=== PATIENT | female | born 1985 | race Two or more races ===

== ENCOUNTER 2024-07-04 15:56 | Emergency (ER) | payer OTHER ==
[~2024-07-04] VITALS: Ht 149.9 cm; Wt 124.7 kg
[2024-07-04] MEDS ORDERED: LEVOTHYROXINE25 MCG PO (18:05)
[2024-07-04] MEDS ORDERED: SYNTHROID200 MCG PO (18:05)
[2024-07-04] MEDS ORDERED: 0.9 % SODIUM CHLORIDE 500 ML IV ONE (18:45)
[2024-07-04] MEDS ORDERED: ACETAMINOPHEN 500 MG GEL..CAP PO ONE ×2 (19:00→19:10)
[2024-07-04] MEDS ORDERED: FAMOTIDINE/PF 20 MG/2 ML VIAL IV ONE (19:00)
[2024-07-04] MEDS ORDERED: FAMOTIDINE/PF 20 MG/2 ML VIAL ONE (19:10)
[2024-07-04 19:22] LABS: HEMATOCRIT 42.4 % (36.0-45.00); HEMOGLOBIN 13.9 g/dL (12.0-15.00); MEAN CELL VOLUME 87.2 fL (80.00-100.00); MEAN CORPUSCULAR HEMOGLOBIN 28.6 pg (27.00-32.0); MEAN CORPUSCULAR HGB CONC 32.8 g/dl (32.0-36.0); PLATELET COUNT 321 K/uL (150-450); RED BLOOD COUNT 4.87 M/uL (4.00-6.00); RED CELL DISTRIBUTION WIDTH 13.9 % (11.5-14.5)
[2024-07-04 19:57] LABS: INR 0.99; PARTIAL THROMBOPLASTIN TIME 30.9 SECONDS (22.0-34.0); PROTHROMBIN TIME 10.8 SECONDS (9.0-11.5)
[2024-07-04 20:00] LABS: ALBUMIN 4.2 gm/dL (3.4-5.0); BILIRUBIN TOTAL 0.57 mg/dL (0.3-1.2); CALCIUM 10.1 mg/dL (8.5-10.1); CREATININE SERUM 0.65 mg/dL (0.55-1.02); GFR 103.13; POTASSIUM 4.58 mEq/L (3.5-5.1); TOTAL PROTEIN 8.2 gm/dL (6.4-8.2)
[2024-07-04 20:13] LABS: URINE APPEARANCE Clear; URINE BILIRRUBIN Negative (NEGATIVE); URINE BLOOD Negative; URINE COLOR Yellow; URINE GLUCOSE Negative (NEGATIVE); URINE KETONE Negative (NEGATIVE); URINE LEUKOCYTE Negative; URINE NITRATE Negative; URINE PROTEIN Negative (NEGATIVE); URINE UROBILINOGEN 0.2 E.U./dl
[2024-07-04 20:16] LABS: URINE BACTERIA 356.1 uL (0.0-1933); URINE RBC 9.8 uL (0.0-20.8); URINE WBC 11.3 uL (0.0-23.2)
[2024-07-04] MEDS ORDERED: KETOROLAC TROMETHAMINE 30 MG VIAL ONE (21:07)
[2024-07-04] MEDS ORDERED: KETOROLAC TROMETHAMINE 30 MG VIAL IV ONE (21:15)
== END 2024-07-04 22:32 | disposition home or self-care (01) ==
LOC: ER 15:58
PROVIDERS: General Practice
DX: N83.201 Unspecified ovarian cyst, right side (principal); K80.20 Calculus of gallbladder without cholecystitis without obstruction; Z97.5 Presence of (intrauterine) contraceptive device; E03.9 Hypothyroidism, unspecified